=== PATIENT | female | born 1985 | race Caucasian/White ===

== ENCOUNTER 2018-02-10 06:19 | Inpatient (IN) | payer OTHER ==
--- NOTE | 2018-02-09 16:12 | PDOC.LDHP ---
Labor and Delivery H&P Chief complaint: scheduled induction HPI: 32 y/o WF @ 39 weeks gestation with EDC 02/17. 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 Follow up pap normal. Current pregnacy was initally complicated by shortened cervical length <2 cm noted at 2 week exam. Received nightly Crinone progesterone vaginally until 37 weeks. No labor ensued. Pregnacy otherwise has been uncomplicated. has h/o prior LGA wuth last . areports active fetus. No loss of fluid or vaginal bleeding. SONO on 01/28 showed EFW 3456 gm/83.7% ile... Current gestational age (weeks): 39 Dating criteria: last menstrual period Grav: 3 Para: 2 Current complications: other (see HPI) Abnormal US findings: No Past Medical History: cervical dysplasia Current medications: pre-wendy vitamins Social history: none - Physical Exam Vital signs reviewed and normal: yes General: NAD Heart: RRR Lungs: CTAB Abdomen: gravid Extremeties: trace edema FHT: category 1 - Vaginal Exam cm dilated: 1 Effacement: 90% Station: -1 - OB Labs Blood type: O RH: positive Antibody Screen: negative HIV: negative RPR: negative HEPSAg: negative 1 hour GCT: positive 3 hour GTT: negative GBS: negative Urine drug screen: not done Rubella: immune - Assessment L&D Assessment: elective induction at term - Plan Plan: admit to L&D, labor augmentation if indicated, anesthesia consult for pain management
[~2018-02-10 06:19] MED LIST: Carboprost 250 MCG/ML AMP IM PRN; HYDROcodone/Acetaminophen 5/325 mg Tablet PO PRN; Ibuprofen 800 MG TAB PO PRN; LR / Pitocin 40 units/1000 ml 1,000 ML IV PRN; Lidocaine 1% (PF) 30 ML VIAL SC PRN; Misoprostol 200 MCG TAB PR PRN; Promethazine HCl 25 MG/ML VIAL IM PRN
[2018-02-10] MEDS: Lactated Ringer's 1,000 ML IV SCH ×5 (07:40→17:40)
[2018-02-10 07:52] LABS: Hemoglobin 13.3 g/dL (12.0-16.0); Mean Corpuscular HGB CONC 33.7 g/dL (32.0-36.0); Mean Corpuscular Hemoglobin 29.7 pg (27.0-31.0); Mean Corpuscular Volume 88.2 fl (81.0-99.0); Mean Platelet Volume 7.9 fL (7.4-10.4); Platelet Count 246 thou/uL (130-400); RBC Distribution Width 13.5 % (11.5-14.5); Red Blood Cell (RBC) Count 4.48 mill/uL (4.20-5.40); White Blood Cell (WBC) Count 12.3 thou/uL (4.8-10.8)
[2018-02-10] MEDS ORDERED: LR 500 ML/Oxytocin 10 units 500 ML ONE (07:59)
[2018-02-10 08:25] LABS: HBSAg Index 0.21 S/CO (0-0.99); Hep B Surf Ag Non-Reactive S/CO (NonReactive); Syphilis Antibody Nonreactive (Nonreactive); Syphilis Antibody Index 0.04 S/CO (<1.00 Non-Reactive)
[2018-02-10 08:27] VITALS: BMI 41.5
[2018-02-10] MEDS: LR 500 ML/Oxytocin 10 units 500 ML IV SCH ×2 (08:30→18:23)
[2018-02-10] MEDS ORDERED: DISCONTINUE ALL PREVIOUS NARCOTICS FS SCH (08:45)
[2018-02-10] MEDS ORDERED: Bupivacaine 0.5% 20 ML, fentaNYL Citrate/PF 400 MCG in Sodium Chloride 0.9% 72 ML EPIDURAL SCH ×2 (08:45→12:00)
[2018-02-10] MEDS: Ondansetron HCl/PF 4 MG/2 ML Vial IVP PRN (11:03)
[2018-02-10] MEDS ORDERED: Ondansetron HCl/PF 4 MG/2 ML Vial IVP PRN ×2 (11:15→20:08)
[2018-02-10] MEDS ORDERED: Communication Order-Pharmacy FS SCH ×2 (11:15→20:15)
[2018-02-10] MEDS ORDERED: Promethazine HCl 25 MG/ML VIAL IM PRN ×2 (11:15→20:08)
[2018-02-10] MEDS ORDERED: Lactated Ringer's 500 ML IV PRN (11:15)
[2018-02-10] MEDS ORDERED: Eucerin (Mineral Oil/Petrolatum,White) 30 gm Jar TOP PRN ×2 (11:15→20:08)
[2018-02-10] MEDS ORDERED: Acetaminophen 325 MG TAB PO PRN (11:15)
[2018-02-10] MEDS ORDERED: Naloxone HCl 0.4 mg/ml Vial IVP PRN ×3 (11:15→20:08)
[2018-02-10] MEDS ORDERED: diphenhydrAMINE 50 MG/ML VIAL IVP PRN ×2 (11:15→20:08)
[2018-02-10] MEDS ORDERED: Fentanyl 4mcg/Marcaine 0.1% Cassette 100 ML EPIDURAL SCH (11:15)
[2018-02-10] MEDS ORDERED: ePHEDrine/0.9% NaCl/PF SYRINGE 50 mg/10 ml SLOW IVP PRN (11:15)
[2018-02-10] MEDS ORDERED: LR / Pitocin 40 units/1000 ml 1,000 ML ONE (16:12)
[2018-02-10] MEDS ORDERED: Lidocaine 1% (PF) 30 ML VIAL ONE (16:12)
[2018-02-10] MEDS ORDERED: Bicitra 30 ML UDCUP ONE (19:03)
[2018-02-10] MEDS ORDERED: CEFAZOLIN/Water 2 GM/20 ML SYRINGE ONE (19:03)
--- NOTE | 2018-02-10 19:13 | PDOC.LDPN ---
Labor & Delivery Progress Note - Subjective Subjective: comfortable - Objective Vital signs reviewed and normal: yes General: NAD Uterine fundus: non tender Dilation: 8 Effacement: 100% Station: -2 FHT: category 1, category 2 [place] contractions every: 2 - Assessment (1) Failure to progress in labor Code(s): O62.2 - OTHER UTERINE INERTIA Current Visit: Yes Status: Acute -: no significant change in 1-2 hours, leslye [place], rishi for ftp
[2018-02-10] MEDS ORDERED: diphenhydrAMINE 25 MG CAP PO PRN (19:23)
[2018-02-10] MEDS ORDERED: Lanolin Ointment 7 GM TUBE TOP PRN (19:23)
[2018-02-10] MEDS ORDERED: LR w/ Pitocin 40 units/1000 ML BAG IV SCH (19:30)
[2018-02-10] MEDS ORDERED: CEFAZOLIN/Water 2 GM/20 ML SYRINGE SLOW IVP SCH (19:30)
[2018-02-10] MEDS ORDERED: Bicitra 30 ML UDCUP PO SCH (19:30)
[2018-02-10] MEDS ORDERED: Morphine PF 1 MG/ML SYR ONE (19:39)
[2018-02-10] MEDS ORDERED: Oxytocin 10 UNITS/ML VIAL ONE (19:40)
[2018-02-10] MEDS ORDERED: Ketorolac Tromethamine 30 MG/ML VIAL IVP PRN (20:08)
[2018-02-10] MEDS ORDERED: Naloxone HCl 0.4 mg/ml Vial IV PRN (20:08)
[2018-02-10] MEDS ORDERED: Promethazine HCl 25 MG SUPP PR PRN (20:08)
[2018-02-10] MEDS ORDERED: Naloxone HCl 0.4 mg/ml Vial IVP SCH (20:08)
[2018-02-10] MEDS ORDERED: Misoprostol 200 MCG TAB ONE (21:27)
[2018-02-10] MEDS ORDERED: Ibuprofen 800 MG TAB PO SCH (22:00)
[2018-02-11 05:37] LABS: Hemoglobin 11.8 g/dL (12.0-16.0); Mean Corpuscular HGB CONC 33.8 g/dL (32.0-36.0); Mean Corpuscular Hemoglobin 30.4 pg (27.0-31.0); Mean Corpuscular Volume 89.9 fl (81.0-99.0); Mean Platelet Volume 8.2 fL (7.4-10.4); Platelet Count 214 thou/uL (130-400); RBC Distribution Width 13.4 % (11.5-14.5); Red Blood Cell (RBC) Count 3.88 mill/uL (4.20-5.40); White Blood Cell (WBC) Count 18.2 thou/uL (4.8-10.8)
--- NOTE | 2018-02-11 07:25 | PDOC.OPDEL ---
OB Operative/Delivery Note Delivery Dr/Surgeon: Jing Assist: Spike Pre-Delivery Diagnosis: arrest of dilation, elective induction Procedure/Post Delivery Dx: primary low transverse CS Weeks gestation: 39 Anesthesia: epidural - Findings A Sex: female Weight: 9 lb 14 oz - 1 min: 8 - 5 min: 9 - Additional Findings/Plan Placenta delivered: manual removal findings: low transverse hysterotomy with extension, normal uterus, normal tubes, normal ovaries Estimated blood loss: 500ml Compilations/Other Findings: none
--- NOTE | 2018-02-11 07:28 | PDOC.PP ---
Post Progress Note Post Day #: 1 Subjective: nauseated. adequate pain control. Vital Signs (12 hours) Temp Pulse Resp BP 02/11/18 05:18 98.3 F 69 17 111/67 02/11/18 04:00 97.9 F 73 17 02/11/18 02:00 97.9 F 73 17 124/70 02/10/18 23:30 98.0 F 79 17 115/66 02/10/18 22:25 97.9 F 73 17 130/62 Weight Weight 220 lb - Physical Examination General: NAD Cardiovascular: no m/r/g, RRR Respiratory: clear to auscultation bilaterally, non-labored breathing Abdominal: + bowel sounds, lochia, no distention, appropriately TTP Result Diagrams: 02/11/18 05:10 Additional Labs: Post Labs Blood Type O POSITIVE 02/10/18 07:47 Hep Bs Antigen Non-Reactive S/CO (NonReactive) 02/10/18 07:47 - Assessment/Plan post op day 0-1. Failure to progress. LGA baby routine post op care.
[2018-02-11] MEDS: Prenatal Vitamin 1 TAB PO SCH (08:08)
[2018-02-11] MEDS: Docusate Calcium (SURFAK) 240 MG CAP PO SCH ×2 (08:08→20:21)
[2018-02-11] MEDS ORDERED: Adacel (T-DAP) 0.5 ML VIAL IM ONE (09:00)
[2018-02-11] MEDS: Ondansetron HCl/PF 4 MG/2 ML Vial IVP PRN (09:21)
[2018-02-11] MEDS: LR 500 ML/Oxytocin 10 units 500 ML IV SCH (09:38)
[2018-02-11] MEDS: Lactated Ringer's 1,000 ML IV SCH (11:01)
--- NOTE | 2018-02-11 11:09 | OP ---
DICTATION WAS CUTTING OUT on the abdomen. The cord was doubly clamped and cut and the baby was handed to the pediatric t eam in attendance. The cord blood was obtained and placenta was then extracted. Uterus was curetted of any remaining placental fragments with dry laparotomy sponge. Hysterotomy incision was closed in running locking fashion with #1 Monocryl in a double layer closure. The hysterotomy incision was th en inspected. Hemostasis was assured. The Trey O retractor was then removed. Again, the hysterot nina incision was inspected and . The rectus muscle bellies were inspected and found to be hemo static prior to fascial closure. The fascia was closed with 0 PDS suture x2 in a running contin uous fashion. Subcutaneous tissue was noted to be hemostatic and . [place] were used to close the skin .
[2018-02-11] MEDS: traMADol HCl 50 MG TAB PO PRN ×2 (12:51→16:43)
[2018-02-11] MEDS: Simethicone Chewable 80 MG TAB PO PRN ×2 (12:51→20:21)
[2018-02-11] MEDS: Ibuprofen 800 MG TAB PO SCH (20:21)
[2018-02-12] MEDS: Lactated Ringer's 1,000 ML IV SCH ×2 (05:59→09:58)
[2018-02-12] MEDS: Ibuprofen 800 MG TAB PO SCH ×2 (06:02→13:47)
--- NOTE | 2018-02-12 08:09 | PDOC.PP ---
Post Progress Note Post Day #: 1 PO intake tolerated: yes Flatus: yes Ambulation: yes Vital Signs (12 hours) Temp Pulse Resp BP 02/12/18 08:02 98.6 F 79 20 118/66 02/12/18 04:00 98.6 F 85 18 02/12/18 00:00 98.6 F 85 18 Weight Weight 220 lb - Physical Examination General: NAD Cardiovascular: no m/r/g, RRR Respiratory: clear to auscultation bilaterally, non-labored breathing Abdominal: + bowel sounds, lochia, no distention, appropriately TTP Skin: CS incision dry & intact, no rash Psychiatric: A&Ox3, normal affect Result Diagrams: 02/11/18 05:10 Additional Labs: Post Labs Blood Type O POSITIVE 02/10/18 07:47 Hep Bs Antigen Non-Reactive S/CO (NonReactive) 02/10/18 07:47 - Assessment/Plan doing well post op day 2 .ready for discharge. F/u post op day 7 for staple removal and 6 weeks
[2018-02-12] MEDS: Docusate Calcium (SURFAK) 240 MG CAP PO SCH (09:58)
[2018-02-12] MEDS: Prenatal Vitamin 1 TAB PO SCH (09:58)
[2018-02-12] MEDS: Simethicone Chewable 80 MG TAB PO PRN (09:58)
[2018-02-12] MEDS: traMADol HCl 50 MG TAB PO PRN (10:02)
[2018-02-12 12:10] VITALS: BP 115/63; TEMP 98.4
== END 2018-02-12 14:00 | disposition home or self-care (01) | DRG 765 ==
LOC: L&D 06:19 → 3SW 22:24
PROVIDERS: ADMIT Obstetrics & Gynecology; ATTEND Obstetrics & Gynecology
PROC: 10D00Z1 Extraction of Products of Conception, Low, Open Approach (ICD-10-PCS; principal; 2018-02-10)
PROC: 3E033VJ Introduction of Other Hormone into Peripheral Vein, Percutaneous Approach (ICD-10-PCS; 2018-02-10)
DX: O62.2 Other uterine inertia (principal); O26.873 Cervical shortening, third trimester; Z37.0 Single live birth; O36.63X0 Maternal care for excessive fetal growth, third trimester, not applicable or unspecified; Z3A.39 39 weeks gestation of pregnancy; Z85.41 Personal history of malignant neoplasm of cervix uteri
CPT/HCPCS: 36415; 51702; 76815; 85027; 86780; 86850; 86900; 86901; 87340; J1885; J2001; J2274; J2405; J2550; J2590; J3010; J3490; J7050; J7120